=== PATIENT | male | born 1960 | race Caucasian/White ===

== ENCOUNTER 2023-03-05 11:16 | Day surgery (SDC) | payer OTHER, SELFPAY ==
--- NOTE | 2023-03-04 20:56 | COLE_ITS ---
Date of service: 03/05/23 Time of Service: 13:00 Colonoscopy Report Date of procedure: 03/05/23 Pre-op diagnosis general: anal spasm/hx of colitis on CT scan Post-op diagnosis procedure note: other (polyps/varicosities /dilated veins in left colon ) Surgeon: Nely Macias Anesthesia Type: General:No Airway Estimated blood loss (mL): 5 Complications: None Disposition: same day Prep: Miralax/Dulcolax Retraction Time: 15 Procedure Description: After informed consent was obtained the patient was taken to the procedure room and placed in a left decubitous position. Monitors were applied and a time out was done. The patients name, date of , procedure, allergies to medications and metal in their body was reviewed. The patient was then sedated. Once sedated and comfortable a rectal exam was done. External exam was normal. Internal exam revealed a normal sphincter tone and no palpable masses. The prostate -atrophied The scope was then introduced and retrofelexed. No internal hemorrhoids were identified. The scope was then advanced to the cecum without difficulty. The TI and appendiceal orifice were identified. The prep was BBPS 3 in all segments for a total of 9. The scope was then slowly retracted over 15 minutes back into the rectum. He had a flat 0.5 cm polyp at 20 cm. This is removed with a cold biopsy forcep. Biopsies are taken at 80/60/40 centimeters and in the rectum. the mucosa has a normal vascular pattern. In the left colon he does appear to have dilated veins. They almost appear as though he has varicosities or portal hypertension. He had significant bleeding from the biopsy at 40 cm and a clip was placed across this biopsy site. He also had significant bleeding in the rectum. These biopsy sites were cauterized. Plan the scope was removed and the patient was woken up and taken back to Same day surgery in stable condition. The patient tolerated the procedure well and there were no immediate complications. Follow up: The patient should follow up in 7-10 years unless they develop azevedo ges in bowel habits or other new gastrointestinal complaints.
--- NOTE | 2023-03-04 21:18 | PDOC.DSDIS_ITS ---
Date of service: 03/05/23 Time of Service: 12:59 Discharge Plan Disposition Patient Disposition: Home Condition: Good Discharge Details Reason For Visit: colon cancer screening Attending Provider: Nely Macias Primary Care Provider: Marbella Austin Home Meds and New Rx's Prescriptions: Discontinued polyethylene glycol 3350 17 gram/dose powder 238 g PO ONCE Qty: 238 0RF Rx Instructions: take per colonoscopy instructions bisacodyl [Dulcolax (bisacodyl)] 5 mg tablet,delayed release (DR/EC) 5 mg PO ONCE Qty: 4 0RF Rx Instructions: take per colonoscopy instructions No Action omeprazole 40 MG capsule,delayed release(DR/EC) 40 mg PO DAILY atorvastatin 20 mg tablet 20 mg PO DAILY tamsulosin 0.4 mg capsule 0.4 mg PO DAILY meloxicam 7.5 mg tablet 7.5 mg PO BID Discharge Instructions Additional Instructions: DSU Colonoscopy Post- Op Instructions Instructions for Everyone who is given Anesthesia: For your safety, please do the following for the next twenty-four (24) hours: *Do Not operate a motor vehicle (car, truck, motorcycle, etc.) *Do Not drink alcoholic beverages or use any recreational drugs for the first 24 hours or while taking pain medications. The medications in your body may have a reaction that can be dangerous. *Do Not make any important decisions or sign any important papers. Findings: small polyp Follow up: -My office will send a letter in 2 to 3 weeks time with the results of the pathology and when to repeat the colonoscopy 1. No lifting over 20 pounds or strenuous activity for the first 24 hours after your procedure. After 24 hours there are no restrictions on your activity but you may feel fatigued for a few days. 2. After you arrive home you may have a light meal and return to your normal diet as you can tolerate it without feeling sick to your stomach. 3. You may have a bloated, gaseous feeling in your belly (abdomen) after a colonoscopy. Passing gas and belching will help. Walking or lying down on your left side with your knees flexed may relieve the discomfort. Call the office at [phone] (Office) or [phone] (Hospital) right away if you notice any of the following: a.Vomiting of blood or ?coffee ground stools?. b.Rectal bleeding 1Tbsp, blood clots or continuous bleeding. c.Severe belly (abdominal) pain. d.A hard distended belly (abdomen) and an inability to pass gas. 4. Please don?t expect to have a normal BM (bowel movement) for 2-3 days after your procedure. 5. If there are questions regarding the findings of your procedure, please contact your doctor 6. If you are unable to contact your doctor with a problem, contact the hospital at [phone]. 7. Continue all your regular medications unless directed otherwise. I understand the above instructions and have no questions. Signature of Patient or Adult Escort Name of Responsible Adult Escort Signature of Nurse Date/Time Activity:: see above Diet:: Carb Counting Discharge Orders Discharge Orders: Discharge Order (Routine); Ordered 03/05/23 Ordered By: Nely Macias DS: Diagnosis Discharge Diagnosis (1) Abnormal CT scan, colon: Status: Acute Asessment and Plan: The patient is seen and examined after their colonoscopy.? The patient has been able to pass gas.? They are not having abdominal pain.? They have been able to tolerate liquids and a snack.? They do not have any nausea or vomiting.? They are not having any chest pain or shortness of breath.??? They are not having any rectal bleeding. Their vital signs have been stable-see nursing notes. We discussed findings during their colonoscopy, and any biopsies that were done/polyps that were removed. The patient will be sent a letter with any biopsy results, and when to repeat the colonoscopy.-see discharge instructions. Patient was given explicit instructions to follow-up regarding colonoscopy-refer to discharge instructions.? We reviewed resumption of medications. Patient verbalized understanding and discharged in stable and satisfactory condition- See nursing notes. (2) Anal spasm: Status: Acute (3) History of colitis: (4) History of prostate cancer: Status: Acute (5) Colon polyp: Status: Acute
[2023-03-05 11:20] VITALS: BP 145/81; PULSE 82; RESP 16; TEMP 36.4; O2SAT 95
--- NOTE | 2023-03-05 11:44 | ANES.PREOP_ITS ---
General Info Date of Service Date Performed: 03/05/23 Height: 5 ft 11 in Weight: 88.4 kg Body Mass Index (BMI): 27.1 Surgical Procedure: Operation Date: 03/05/23 11:20 Proposed Procedure Side Surgeon ari Macias, DO Meds Allergies and Home Medications Allergies Allergy/AdvReac Type Severity Reaction Status Date / Time Penicillins Allergy Intermediate Hives Verified 03/05/23 11:31 amoxicillin Allergy Intermediate Dizziness/L Uncoded 03/05/23 11:31 ighthead Home Medication Medication Instructions Recorded omeprazole 40 mg capsule,delayed 40 mg PO DAILY 08/30/14 release atorvastatin 20 mg tablet 20 mg PO DAILY 02/11/23 meloxicam 7.5 mg tablet 7.5 mg PO BID 02/11/23 tamsulosin 0.4 mg capsule 0.4 mg PO DAILY 02/11/23 Current Visit Medications: Current Medications Generic Name Dose Route Start Last Admin Trade Name Freq PRN Reason Stop Dose Admin Hyoscyamine Sulfate 0.125 mg 03/05/23 08:38 Hyoscyamine 0.125 Mg Sl/Oral/Chew SL 04/04/23 08:37 DIRECTED PRN Ringer's Solution 1,000 mls @ 80 mls/hr 03/05/23 06:00 IV 04/03/23 23:59 [facility] IV Miscellaneous Supplies 1 each 03/05/23 06:00 Iv Access IV 04/03/23 23:59 DIRECTED [facility] Ondansetron HCl 4 mg 03/05/23 08:38 Ondansetron 4 Mg/2 Ml Vial IVP 04/04/23 08:37 Q4H PRN PRN Nausea / Vomiting Sodium Chloride 0 ml 03/05/23 06:00 Normal Saline Flush 10 Ml Syr IV 04/03/23 23:59 PRN PRN Sodium Chloride 0 ml 03/05/23 06:00 Normal Saline 10 Ml Vial IJ 04/03/23 23:59 DIRECTED PRN Sterile Water 0 ml 03/05/23 06:00 Water,Injection,Sterile 10 Ml Vial IJ 04/03/23 23:59 DIRECTED PRN PFSH Active Problems Active Problems: Problem Status Onset Code History of prostate cancer Z85.[address] scan, colon R93.3 Anal spasm K59.4 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 Sneezing R06.7 Otalgia, bilateral H92.03 Pulsatile tinnitus of both ears H93.A3 Medical History Medical History History of colitis Hypertension Allergic rhinitis GERD (gastroesophageal reflux disease) Hyperlipidemia BPH (benign prostatic hyperplasia) Surgical History Surgical History EGD - IV Sedation Tobacco Smoking/Tobacco Use Status: Never Alcohol Alcohol Intake: never Substance Use Substance use: Never Substance use type: does not use Vital Signs and Lab Results Vital Signs Most Recent Vital Signs in EMR: Most Recent Vital Signs Temp Pulse Resp BP Pulse Ox 36.4 C L 82 16 145/81 H 95 03/05/23 11:20 03/05/23 11:20 03/05/23 11:20 03/05/23 11:20 03/05/23 11:20 Lab Results Blood Type / Crossmatch: No Data to Display Complete Blood Count: No Data to Display Complete Metabolic Panel: No Data to Display Liver Function Panel: No Data to Display Coagulation Panel: No Data to Display Cardiac Panel: No Data to Display Arterial Blood Gas: No Data to Display Venous Blood Gas: No Data to Display Pancreas Panel: No Data to Display Thyroid Panel: No Data to Display Infectious Disease: No Data to Display Blood Cultures: No Data to Display Toxicology Panel: No Data to Display Anesthesia Assessment and Plan Anesthesia History Personal History: No History of Anesthesia Complications Family History: No Family History of Anesthesia Complications Exercise Tolerance Exercise Tolerance: Metabolic Equivalents>4 Pertinent Negatives Pertinent Negatives: No Symptoms of GERD, No Major Cardiovascular Symptoms or Complaints, No Major Pulmonary Symptoms or Complaints and No History of CVA/TIA Cardiac & Pulmonary Exam Cardiac Exam: Normal S1/S2 Heart Sounds Pulmonary Exam: Clear Bilateral Breath Sounds Implantable Cardiac Device Does patient have a Pacemaker or an ICD?: No Airway Exam Known Difficult Airway: No Mallampati Class: 2 Mouth Opening: Normal (> 3cm) Thyromental Distance: Greater than 3 cm Neck Range of Motion: Full ROM Neck Circumference: Normal Teeth Condition: Normal Dentition ASA Classification ASA Score: ASA 2 Emergency Case?: No NPO Status NPO Status: NPO Clears >2 hours, Solids >8 hours Anesthesia Plan Resuscitation Status: Full Code Anesthesia Technique: General Anesthesia Airway Planned: Natural Airway Monitors Used: Standard Monitors
[2023-03-05] MEDS: Lactated Ringers 1,000 ML 80 ML IV (11:45)
[2023-03-05 12:13] VITALS: BMI 27.1
--- NOTE | 2023-03-05 12:30 | BOWEL_PTH ---
PATIENT: Marcelo Ryan LOC: [facility] U#:[id number] AGE/SX: 62/M ROOM: RE03/05/[address]: Nely Macias : 1960 BED: DIS: 03/05/2023 SPEC #: [id number] RECD: 03/05/23 13:23 STATUS: DIMAS SMITH #: [id number] ELENA: 03/05/23 12:[address]: Nely Macias DEPT: Surgical Specimen RECD BY: Amanda Washburn ENTERED: 03/05/23 13:26 SP TYPE: Bowel OTHR DR: Marbella Austin Tissues: 1 - BIOPSY BOWEL 2 - BIOPSY BOWEL 3 - BIOPSY BOWEL 4 - BIOPSY BOWEL 5 - BIOPSY BOWEL Procedures: GROSS AND MICRO LEVEL 4 Comments: [id number]
[2023-03-05 12:57] VITALS: BP 118/80; PULSE 85; RESP 16; TEMP 36.4; O2SAT 94
--- NOTE | 2023-03-05 13:17 | W.ANESPOSTOP ---
Postoperative Evaluation Date, Time and Location Date Performed: 03/05/23 Time Performed: 13:06 Patient Location: Day Surgery Unit Vital Signs Most Recent Imported Vital Signs: Most Recent Vital Signs Temp Pulse Resp BP Pulse Ox 36.4 C L 85 16 118/80 94 03/05/23 12:57 03/05/23 12:57 03/05/23 12:57 03/05/23 12:57 03/05/23 12:57 Pain Score Most Recent Pain Score: Most Recent Pain Score Pain Level 0 03/05/23 12:57 Assessment Mental Status: Awake (Alert & Oriented to Patient Baseline) Airway and Respiratory Function: Patent airway with normal (patient baseline) respiratory exam Cardiovascular Function: Hemodynamically Stable Hydration Status: Adequately Hydrated Nausea & Vomiting: No Nausea or Vomiting Pain: Pt. Denies Any Pain Peripheral Nerve Block: Patient did not receive a nerve block
[2023-03-05 13:24] VITALS: BP 130/80; PULSE 72; RESP 16; TEMP 37; O2SAT 94
== END 2023-03-05 13:45 | disposition home or self-care (01) ==
LOC: SUR 11:16
PROVIDERS: PCP Internal Medicine; Visit Provider Surgery
PROC: 0DJD8ZZ Inspection of Lower Intestinal Tract, Via Natural or Artificial Opening Endoscopic (ICD-10-PCS; CPT 45378; principal; 2023-03-05 11:15)
DX: Z12.11 Encounter for screening for malignant neoplasm of colon (principal); K59.4 Anal spasm; Z87.19 Personal history of other diseases of the digestive system; K63.5 Polyp of colon; K63.89 Other specified diseases of intestine; Z85.46 Personal history of malignant neoplasm of prostate
CPT/HCPCS: 45380; 88305; J2001